=== PATIENT | female | born 1955 | race Caucasian/White ===

== ENCOUNTER 2019-08-23 14:46 | Inpatient (IN) | payer OTHER ==
[2019-08-23 15:25] LABS: Absolute Lymphocytes (CBC) 0.8 K/uL (0.7-4.9); Basophils % 0.1 % (0-1.3); Hematocrit 40.8 % (36.0-45.0); Lymphocytes % 9.8 % (15.3-44.8); RBC Red Blood Cell Count 4.53 M/uL (3.86-4.86)
[2019-08-23 15:27] LABS: Protime INR 1.1
[2019-08-23] MEDS ORDERED: LEVALBUTEROL 1.25 MG/3 ML NEB ONE (15:28)
[2019-08-23] MEDS ORDERED: NA CHLORIDE 0.9% 3,000 ML ONE (15:28)
[2019-08-23 15:48] LABS: ALT/SGPT 22 U/L (12-78); AST/SGOT 16 U/L (15-37); Albumin 4.5 g/dL (3.4-5.0); Alkaline Phosphatase 73 U/L (45-117); BUN Blood Urea Nitrogen 18 mg/dL (7-18); Bicarbonate 26 mmol/L (21-32); Bilirubin Direct 0.1 mg/dL (0-0.2); Bilirubin Total 0.4 mg/dL (0.2-1.0); Glucose Level 131 mg/dL (74-106); Magnesium 2.3 mg/dL (1.8-2.4); NT PRO-BNP 746 pg/mL (<125); Potassium 3.9 mmol/L (3.5-5.1); Protein, Total 8.7 g/dL (6.4-8.2); Sodium Level 141 mmol/L (136-145); Troponin (Emerg Dept Use Only) < 0.02 ng/mL (0.0-0.045)
[2019-08-23 15:49] LABS: Blood Morphology Comment NOT SEEN (NOT SEEN); Platelet Estimate ADEQ; Urine White Blood Cell Casts OK
--- NOTE | 2019-08-23 16:08 | RAD REPORT ---
EXAM DESCRIPTION: RAD - Chest Single View - 08/23/2019 3:28 pm CLINICAL HISTORY: COUGH Chest pain. COMPARISON: No comparisons FINDINGS: Portable technique limits examination quality. Uhiq-eo-ajguocib infiltrate is present in the right lung base compatible with pneumonia. The heart is mildly enlarged in size. No displaced fractures. IMPRESSION: Mild right lower lobe pneumonia.
[2019-08-23 16:41] LABS: Urine Bacteria <20 /HPF (<20); Urine Culture Reflex Order NOT NEEDED; Urine RBC <5 /HPF (NONE SEEN)
[2019-08-23] MEDS: D5 0.45 NS 1,000 ML IV SCH (17:00)
[2019-08-23] MEDS ORDERED: AZITHROMYCIN IV 500 MG in NA CHLORIDE 0.9% 250 ML IVPB ONE (17:00)
--- NOTE | 2019-08-23 17:01 | ER ---
Nurse's Notes [facility] Name: Solange So Age: 63 yrs Sex: Female : 1955 Arrival Date: 08/23/2019 Time: 14:48 Bed 19 Private MD: Дмитрий Minor E Diagnosis: Pneumonia due to other specified bacteria;Hypoxemia Presentation: 08/23 14:55 Presenting complaint: Patient states: Was seen at [facility] with pneumonia and to be sg transferred here for admission but due to bed availability pt left AMA to go home. pt reports shortness of breath, productive cough and fever at home. Transition of care: patient was not received from another setting of care. Onset of symptoms was August 23, 2019. Risk Assessment: Do you want to hurt yourself or someone else? Patient reports no desire to harm self or others. Initial Sepsis Screen: Does the patient meet any 2 criteria? RR > 20 per min. HR > 90 bpm. Yes Does the patient have a suspected source of infection? Yes: Productive cough/pneumonia. Care prior to arrival: None. 14:55 Method Of Arrival: Wheelchair sg 14:55 Acuity: CONSTANCE 3 sg Historical: - Allergies: 16:34 No Known Allergies; ca1 - Home Meds: 16:34 carvedilol 6.25 mg oral tab 1 tab daily [Active]; benzonatate 100 mg oral cap 1 cap 3 ca1 times per day [Active]; levofloxacin 500 mg Oral tab 1 tab once daily [Active]; prednisone 10 mg Oral tab [Active]; naproxen 500 mg Oral tab 1 tab every 12 hours [Active]; - PMHx: 16:34 Hypertension; ca1 - PSHx: 16:34 None; ca1 - Immunization history:: Adult Immunizations up to date, Pneumococcal vaccine is not up to date, Flu vaccine is up to date. - Social history:: Smoking status: Patient/guardian denies using tobacco. - Ebola Screening: : Patient negative for fever greater than or equal to 101.5 degrees Fahrenheit, and additional compatible Ebola Virus Disease symptoms Patient denies exposure to infectious person Patient denies travel to an Ebola-affected area in the 21 days before illness onset No symptoms or risks identified at this time. Screenin:05 Abuse screen: Denies threats or abuse. Denies injuries from another. Nutritional ca1 screening: No deficits noted. Tuberculosis screening: No symptoms or risk factors identified. Fall Risk IV access (20 points). Assessment: 15:05 General: Appears in no apparent distress. comfortable, Behavior is calm, cooperative, ca1 appropriate for age. Pain: Complains of pain in right lateral posterior chest Pain currently is 5 out of 10 on a pain scale. Pain began 2-3 days ago. Is intermittent. Neuro: Level of Consciousness is awake, alert, obeys commands, Oriented to person, place, time, situation. Cardiovascular: Heart tones S1 S2 present Capillary refill < 3 seconds Patient's skin is warm and dry. Rhythm is sinus tachycardia. Respiratory: Reports shortness of breath on exertion cough that is productive, Airway is patent Respiratory effort is even, unlabored, Respiratory pattern is regular, symmetrical, Breath sounds with wheezes bilaterally. the patient has mild shortness of breath. GI: Abdomen is round non-distended, Bowel sounds present X 4 quads. Abd is soft and non tender X 4 quads. : No signs and/or symptoms were reported regarding the genitourinary system. EENT: No signs and/or symptoms were reported regarding the EENT system. Derm: Skin is intact, is healthy with good turgor, Skin is pink, warm \T\ dry. Musculoskeletal: Circulation, motion, and sensation intact. Capillary refill < 3 seconds, Range of motion: intact in all extremities. 16:02 Reassessment: Patient appears in no apparent distress at this time. Patient and/or ca1 family updated on plan of care and expected duration. Pain level reassessed. Patient is alert, oriented x 3, equal unlabored respirations, skin warm/dry/pink. 17:07 Reassessment: Patient appears in no apparent distress at this time. Patient and/or ca1 family updated on plan of care and expected duration. Pain level reassessed. Patient is alert, oriented x 3, equal unlabored respirations, skin warm/dry/pink. 17:49 Reassessment: Hospitalist at bedside. ca1 18:00 Reassessment: Patient appears in no apparent distress at this time. Patient and/or ca1 family updated on plan of care and expected duration. Pain level reassessed. Patient is alert, oriented x 3, equal unlabored respirations, skin warm/dry/pink. 19:00 Reassessment: Patient appears in no apparent distress at this time. Patient and/or ca1 family updated on plan of care and expected duration. Pain level reassessed. Patient is alert, oriented x 3, equal unlabored respirations, skin warm/dry/pink. 19:59 Reassessment: Patient appears in no apparent distress at this time. Patient is alert, ca1 oriented x 3, equal unlabored respirations, skin warm/dry/pink. 20:57 Reassessment: Patient appears in no apparent distress at this time. Patient and/or ca1 family updated on plan of care and expected duration. Pain level reassessed. Patient is alert, oriented x 3, equal unlabored respirations, skin warm/dry/pink. Vital Signs: 14:57 BP 144 / 72; Pulse 114; Resp 22; Temp 98.9; Pulse Ox 94% on R/A; sg 15:00 Pulse Ox 88% on R/A; ca1 15:10 Pulse Ox 95% on R/A; ca1 15:17 Weight 90.72 kg (R); Height 5 ft. 10 in. (177.80 cm) (R); Pain 10/10; ca1 15:57 BP 169 / 71; Pulse 86; Resp 19; Temp 98.1(O); Pulse Ox 100% on 2 lpm NC; mh5 16:50 BP 149 / 85; Pulse 90; Resp 20 S; Pulse Ox 94% on R/A; ca1 18:35 BP 147 / 96; Pulse 84; Resp 18; Pulse Ox 97% on 2 lpm NC; mh5 19:28 BP 158 / 82; Pulse 83; Resp 20 S; Pulse Ox 93% on R/A; ca1 20:57 BP 131 / 71; Pulse 78; Resp 22 S; Pulse Ox 94% on R/A; ca1 15:17 Body Mass Index 28.70 (90.72 kg, 177.80 cm) ca1 ED Course: 14:48 Patient arrived in ED. am2 14:49 Дмитрий Minor MD is Private Physician. am2 14:54 Eva Fuller, ERICKA is Primary Nurse. ca1 14:55 Dionisio Venegas PA is PHCP. cp 14:55 Dionisio Orlando MD is Attending Physician. cp 14:57 Triage completed. sg 14:58 Arm band placed on. EKG completed in triage. Results shown to MD. sg 15:05 Patient has correct armband on for positive identification. Placed in gown. Bed in low ca1 position. Call light in reach. Side rails up X 1. youth nutritional monitor on. Pulse ox on. NIBP on. Warm blanket given. Head of bed elevated. 15:10 No provider procedures requiring assistance completed. First set of blood cultures ca1 drawn by lab staff. 15:14 Inserted saline lock: 20 gauge in right antecubital area, using aseptic technique. ca1 Blood collected. 15:14 Initial lab(s) drawn, by me, sent to lab. First set of blood cultures drawn by me. ca1 15:28 XRAY Chest (1 view) In Process Unspecified. EDMS 16:00 Notified ED physician of a critical lab result(s). Lactate 2.8. sg 16:10 Notified Nurse Practitioner and/or Physician Luster Repairer of a critical lab result(s), sg Lactate 2.8. 16:59 Prince Acharya MD is Hospitalizing Provider. 22:06 Patient admitted, IV remains in place. Administered Medications: 15:18 Drug: Xopenex (3) 1.25 mg Route: Inhalation; ca1 15:20 Drug: NS 0.9% (30 ml/kg) 30 ml/kg Route: IV; Rate: bolus; Site: right antecubital; ca1 17:06 Follow up: Response: No adverse reaction; IV Status: Completed infusion ca1 16:12 Drug: Rocephin - (cefTRIAXone) 2 grams Route: IVPB; Infused Over: 30 mins; Site: right ca1 antecubital; 17:06 Follow up: Response: No adverse reaction; IV Status: Completed infusion ca1 16:50 Drug: Zithromax 500 mg Route: IVPB; Infused Over: 1 hrs; Site: right antecubital; ca1 18:00 Follow up: Response: No adverse reaction; IV Status: Completed infusion ca1 17:05 Drug: Tussionex Pennkinetic ER 5 ml Route: PO; ca1 18:19 Follow up: Response: No adverse reaction; Marked relief of symptoms ca1 Outcome: 17:00 Decision to Hospitalize by Provider. cp 22:06 Admitted to ER Hold. Please see [facility] for further documentation. 22:06 Condition: stable 22:06 Instructed on the need for admit. 08/24 12:02 Admitted to Tele accompanied by tech, family with patient, room 411. hb 12:02 Condition: stable hb 12:02 Instructed on the need for admit, Demonstrated understanding of instructions. 12:03 Patient left the ED. hb Signatures: Dispatcher [employer] Markel García, ERICKA RN Dionisio Ballesteros PA PA cp Baxter, Heather, RN RN hb Chioma Guerra 5 Radha Gibson am2 Sarah Evans Cheryl, RN RN ca1 Corrections: (The following items were deleted from the chart) 12:03 12:02 Admitted to Tele hb hb
--- NOTE | 2019-08-23 17:01 | EDPHYS ---
Physician Documentation [facility] Name: Solange So Age: 63 yrs Sex: Female : 1955 Arrival Date: 08/23/2019 Time: 14:48 Bed 19 Private MD: Дмитрий Minor E ED Physician Dionisio Orlando HPI: 08/23 15:05 This 63 yrs old Female presents to ER via Wheelchair with complaints of cp Breathing Difficulty. 15:05 The patient has shortness of breath at rest. cp 15:05 Duration: The symptoms are continuous, and are steadily getting worse. Associated signs cp and symptoms: Pertinent positives: productive cough, fever. The patient has been recently seen by a physician: in [place], 2 day(s) ago, with similar presenting complaints, and apparently given a diagnosis of pneumonia, was given a prescription for antibiotics, but the patient's symptoms have worsened. Historical: - Allergies: 16:34 No Known Allergies; ca1 - Home Meds: 16:34 carvedilol 6.25 mg oral tab 1 tab daily [Active]; benzonatate 100 mg oral cap 1 cap 3 ca1 times per day [Active]; levofloxacin 500 mg Oral tab 1 tab once daily [Active]; prednisone 10 mg Oral tab [Active]; naproxen 500 mg Oral tab 1 tab every 12 hours [Active]; - PMHx: 16:34 Hypertension; ca1 - PSHx: 16:34 None; ca1 - Immunization history:: Adult Immunizations up to date, Pneumococcal vaccine is not up to date, Flu vaccine is up to date. - Social history:: Smoking status: Patient/guardian denies using tobacco. - Ebola Screening: : Patient negative for fever greater than or equal to 101.5 degrees Fahrenheit, and additional compatible Ebola Virus Disease symptoms Patient denies exposure to infectious person Patient denies travel to an Ebola-affected area in the 21 days before illness onset No symptoms or risks identified at this time. ROS: 15:10 Constitutional: Negative for fever, poor PO intake. cp 15:10 Eyes: Negative for injury, pain, redness, and discharge. cp 15:10 ENT: Negative for drainage from ear(s), ear pain, difficulty swallowing, difficulty handling secretions. 15:10 Cardiovascular: Negative for chest pain, edema. 15:10 Respiratory: Positive for cough, "sounds productive", shortness of breath. 15:10 Abdomen/GI: Negative for abdominal pain, vomiting, diarrhea, constipation. 15:10 : Negative for urinary symptoms. 15:10 Neuro: Negative for altered mental status, headache, weakness. 15:10 All other systems are negative. Exam: 15:15 Constitutional: The patient appears in no acute distress, alert, awake, cp non-diaphoretic, non-toxic, well developed, well nourished, obviously ill. 15:15 Head/Face: Normocephalic, atraumatic. cp 15:15 Eyes: Periorbital structures: appear normal, Conjunctiva: normal, no exudate, no injection, Sclera: no appreciated abnormality, Lids and lashes: appear normal, bilaterally. 15:15 ENT: External ear(s): are unremarkable, Ear canal(s): are normal, clear, TM's: dullness, bilaterally, Nose: is normal, Mouth: Lips: moist, Oral mucosa: pink and intact, moist, Posterior pharynx: is normal, airway is patent, no erythema, no exudate. 15:15 Neck: ROM/movement: is normal, is supple, without pain, no range of motions limitations, no meningismus, no nuchal rigidity. 15:15 Chest/axilla: Inspection: normal. 15:15 Cardiovascular: Rate: tachycardic, Rhythm: regular, Edema: is not appreciated, JVD: is not appreciated. 15:15 Respiratory: the patient does not display signs of respiratory distress, Respirations: labored breathing, that is mild, intercostal retractions, are absent, shallow respirations, are not present, tachypnea, is not appreciated, Breath sounds: bronchial sounds, that are moderate, are heard diffusely, stridor, is not appreciated, + upper airway congestion. wheezing: is not appreciated. 15:15 Abdomen/GI: Exam negative for discomfort, distension, guarding, Inspection: abdomen appears normal. 15:15 Neuro: Orientation: to person, place \\T\\ time. Mentation: is normal, Motor: moves all fours, strength is normal. 16:20 ECG was reviewed by the Attending Physician. cp Vital Signs: 14:57 BP 144 / 72; Pulse 114; Resp 22; Temp 98.9; Pulse Ox 94% on R/A; sg 15:00 Pulse Ox 88% on R/A; ca1 15:10 Pulse Ox 95% on R/A; ca1 15:17 Weight 90.72 kg (R); Height 5 ft. 10 in. (177.80 cm) (R); Pain 10/10; ca1 15:57 BP 169 / 71; Pulse 86; Resp 19; Temp 98.1(O); Pulse Ox 100% on 2 lpm NC; mh5 16:50 BP 149 / 85; Pulse 90; Resp 20 S; Pulse Ox 94% on R/A; ca1 18:35 BP 147 / 96; Pulse 84; Resp 18; Pulse Ox 97% on 2 lpm NC; mh5 19:28 BP 158 / 82; Pulse 83; Resp 20 S; Pulse Ox 93% on R/A; ca1 20:57 BP 131 / 71; Pulse 78; Resp 22 S; Pulse Ox 94% on R/A; ca1 15:17 Body Mass Index 28.70 (90.72 kg, 177.80 cm) ca1 MDM: 15:05 [facility] 16:55 Data reviewed: vital signs, nurses notes, lab test result(s), EKG, radiologic studies, cp plain films, and as a result, I will admit patient. 16:55 Test interpretation: by ED physician or midlevel provider: ECG. Response to treatment: the patient's symptoms have mildly improved after treatment. Physician consultation: Prince Patrizia VELÁSQUEZ was called at 16:50, was contacted at 16:50, regarding admission, to the telemetry unit. patient's condition. 08/23 15:04 Order name: Basic Metabolic Panel cp 08/23 15:04 Order name: CBC with Diff cp 08/23 15:04 Order name: LFT's cp 08/23 15:04 Order name: Magnesium cp 08/23 15:04 Order name: NT PRO-BNP cp 08/23 15:04 Order name: PT-INR; Complete Time: 15:34 cp 08/23 15:04 Order name: Troponin (emerg Dept Use Only); Complete Time: 16:07 cp 08/23 15:04 Order name: Influenza Screen (a \\T\\ B); Complete Time: 16:07 cp 08/23 15:04 Order name: Procalcitonin; Complete Time: 16:40 cp 08/23 15:04 Order name: Lactate; Complete Time: 16:07 cp 08/23 16:07 Interpretation: Abnormal: LAC 2.8. cp 08/23 15:04 Order name: Sputum Culture cp 08/23 15:04 Order name: Blood Culture Adult (2) cp 08/23 15:04 Order name: Urine Microscopic Only; Complete Time: 16:59 cp 08/23 15:05 Order name: Basic Metabolic Panel; Complete Time: 16:07 EDMS 08/23 16:08 Interpretation: Normal except: CL 108; GLUC 131; GFR 68. cp 08/23 15:05 Order name: CBC with Automated Diff; Complete Time: 16:07 EDMS 08/23 15:34 Interpretation: Normal except: JOHN% 86.3; LYM% 9.8. cp 08/23 15:05 Order name: Liver (Hepatic) Function; Complete Time: 16:07 EDPA 08/23 15:05 Order name: Magnesium; Complete Time: 16:07 EDPA 08/23 15:05 Order name: NT PRO-BNP; Complete Time: 16:07 EDPA 08/23 15:35 Order name: Glucose, Ancillary Testing; Complete Time: 16:07 EDPA 08/23 15:49 Order name: CBC Smear Scan; Complete Time: 16:07 EDPA 08/23 16:54 Order name: CBC with Automated Diff EDPA 08/23 16:54 Order name: Lactate EDPA 08/23 16:54 Order name: Magnesium EDPA 08/23 16:54 Order name: Phosphorus EDPA 08/23 16:54 Order name: Basic Metabolic Panel EDPA 08/23 16:54 Order name: Basic Metabolic Panel EDPA 08/23 16:54 Order name: Lipid Profile EDPA 08/23 16:54 Order name: Lipid Profile EDPA 08/23 16:58 Order name: Urine Dipstick--Ancillary (enter results) eb 08/23 17:06 Order name: Urine Dipstick-Ancillary EDPA 08/23 15:04 Order name: XRAY Chest (1 view); Complete Time: 16:11 08/23 15:04 Order name: EKG; Complete Time: 15:05 cp 08/23 15:04 Order name: Cardiac monitoring; Complete Time: 16:12 08/23 15:04 Order name: EKG - Nurse/Tech; Complete Time: 16:12 08/23 15:04 Order name: IV Saline Lock; Complete Time: 15:33 cp 08/23 15:04 Order name: Labs collected and sent; Complete Time: 15:34 cp 08/23 15:04 Order name: O2 Per Protocol; Complete Time: 15:34 cp 08/23 15:04 Order name: O2 Sat Monitoring; Complete Time: 15:34 cp 08/23 15:04 Order name: Urine Dipstick-Ancillary (obtain specimen); Complete Time: 15:33 cp 08/23 16:54 Order name: Regular EDMS 08/23 18:40 Order name: CBC Smear Scan EDMS EC:20 Rate is 88 beats/min. Rhythm is regular. MN interval is normal. QRS interval is normal. cp QT interval is normal. T waves are Inverted in lead III. Interpreted by me. Reviewed by me. Administered Medications: 15:18 Drug: Xopenex (3) 1.25 mg Route: Inhalation; ca1 15:20 Drug: NS 0.9% (30 ml/kg) 30 ml/kg Route: IV; Rate: bolus; Site: right antecubital; ca1 17:06 Follow up: Response: No adverse reaction; IV Status: Completed infusion ca1 16:12 Drug: Rocephin - (cefTRIAXone) 2 grams Route: IVPB; Infused Over: 30 mins; Site: right ca1 antecubital; 17:06 Follow up: Response: No adverse reaction; IV Status: Completed infusion ca1 16:50 Drug: Zithromax 500 mg Route: IVPB; Infused Over: 1 hrs; Site: right antecubital; ca1 18:00 Follow up: Response: No adverse reaction; IV Status: Completed infusion ca1 17:05 Drug: Tussionex Pennkinetic ER 5 ml Route: PO; ca1 18:19 Follow up: Response: No adverse reaction; Marked relief of symptoms ca1 Disposition: 08/24 12:38 Co-signature as Attending Physician, Dionisio Orlando MD I agree with the assessment and azam plan of care. PA/STATE WILDLIFE OFFICER's history reviewed, patient interviewed, and examined. Disposition: 08/23/19 17:00 Hospitalization ordered by Prince Patrizia for Inpatient Admission. Preliminary diagnosis are Pneumonia due to other specified bacteria, Hypoxemia. - Bed requested for Telemetry/MedSurg (Inpatient). - Status is Inpatient Admission. hb - Condition is Stable. - Problem is new. - Symptoms have improved. UTI on Admission? No Signatures: Dispatcher [employer] EDMS Dionisio Orlando MD MD cha Page, Corey, PA PA cp Monserrat Rodriguez, ERICKA BARNETT cg Sherly Blackwell RN RN Pulliam, Maribel eb Eva Fuller RN RN ca1 Corrections: (The following items were deleted from the chart) 08/23 17:08/22 15:10 Constitutional: Negative for fever, poor PO intake, cp cp 08/23 17:08/22 15:10 Eyes: Negative for injury, pain, redness, and discharge, cp cp 08/23 16:08/22 15:10 ENT: Negative for drainage from ear(s), ear pain, difficulty swallowing, cp difficulty handling secretions, cp 08/23 16:51 08/22 15:10 Cardiovascular: Negative for edema, palpitations, cp cp 08/23 16:08/22 15:10 Respiratory: Positive for cough, "sounds productive", shortness of breath, cp cp 08/23 16:51 08/22 15:10 Abdomen/GI: Negative for abdominal pain, vomiting, diarrhea, constipation, cp cp 08/23 17:08/22 15:10 Skin: Negative for rash, cp cp 08/23 16:08/22 15:10 Neuro: Negative for altered mental status, headache, cp cp 08/23 16:08/22 15:10 All other systems are negative, cp cp 08/23 22: 17:00 Hospitalization Ordered by Prince Patrizia VELÁSQUEZ for Inpatient Admission. Preliminary cg diagnosis is Pneumonia due to other specified bacteria; Hypoxemia. Bed requested for Telemetry/MedSurg (Inpatient). Status is Inpatient Admission. Condition is Stable. Problem is new. Symptoms have improved. UTI on Admission? No. cp 08/24 11:25 08/23 22:01 08/23/2019 17:00 Hospitalization Ordered by Prince Patrizia VELÁSQUEZ for Inpatient eb Admission. Preliminary diagnosis is Pneumonia due to other specified bacteria; Hypoxemia. Bed requested for [facility] ER HOLD. Status is Inpatient Admission. Condition is Stable. Problem is new. Symptoms have improved. UTI on Admission? No. cg 08/24 12:03 11:08/23/2019 17:00 Hospitalization Ordered by Prince Patrizia VELÁSQUEZ for Inpatient hb Admission. Preliminary diagnosis is Pneumonia due to other specified bacteria; Hypoxemia. Bed requested for Telemetry/MedSurg (Inpatient). Status is Inpatient Admission. Condition is Stable. Problem is new. Symptoms have improved. UTI on Admission? No. eb
[2019-08-23 17:06] LABS: Urine Blood NEGATIVE (NEG); Urine Glucose NEGATIVE (NEG); Urine Protein NEGATIVE (NEG); Urine Specific Gravity 1.025 (1.005-1.030)
[2019-08-23] MEDS ORDERED: HYDROCODONE/CHLORPHEN 5 ML/OSYR ONE (17:06)
[2019-08-23] MEDS: ENOXAPARIN 40 MG/0.4 ML SQ SCH (18:00)
--- NOTE | 2019-08-23 18:05 | P.HP ---
Certification for Inpatient Patient admitted to: Inpatient With expected LOS: >2 Midnights Patient will require the following post-hospital care: None Practitioner: I am a practitioner with admitting privileges, knowledge of patient current condition, hospital course, and medical plan of care. Services: Services provided to patient in accordance with Admission requirements found in Title 42 Section 412.3 of the Code of Federal Regulations Patient History Date of Service: 08/23/19 Reason for admission: Shortness of breath History of Present Illness: Patient is a 63-year-old female with obstructive sleep apnea on CPAP at home. She presents to the ER after she failed an outpatient therapy for pneumonia. She recently was diagnosed with community-acquired pneumonia and was prescribed levofloxacin and prednisone. However, her symptoms progressed as evidenced by ongoing fever, dry cough and chest congestion. Patient denies any sick contacts. She also denies any traveling. She works at [employer]. Of note, she has been using her CPAP machine for the past year and has yet to clean it. She arrived in the ER hemodynamically stable but hypoxic with an O2 saturation of 88% on room air. Her chest x-ray revealed evidence of left lower lobe pneumonia. Basic labs significant for lactic acidosis of 2.8. Physical Examination - Physical Exam General: Cooperative, Other (Severely lethargic) HEENT: Atraumatic, Normocephalic, EOMI Neck: Supple Respiratory: Diminished (No wheezing or crackles. Rhonchorous breath sounds.) Cardiovascular: Normal pulses, Regular rate/rhythm, Normal S1 S2 Gastrointestinal: Normal bowel sounds, Soft and benign, Non-distended Musculoskeletal: No swelling, No contractures, No erythema Integumentary: Warmth Neurological: Normal speech, Normal affect - Studies Laboratory Data (last 24 hrs) 08/23/19 15:08: PT 12.9 H, INR 1.10 08/23/19 15:08: WBC 8.4, Hgb 13.8, Hct 40.8, Plt Count 200 08/23/19 15:08: Sodium 141, Potassium 3.9, BUN 18, Creatinine 0.84, Glucose 131 H, Magnesium 2.3, Total Bilirubin 0.4, AST 16, ALT 22, Alkaline Phosphatase 73 Microbiology Data (last 24 hrs): 08/23/19 15:21 Nasopharnyx Influenza Type A Antigen Screen - Final 08/23/19 15:21 Nasopharnyx Influenza Type B Antigen Screen - Final Assessment and Plan - Problems (Diagnosis) (1) Community acquired bacterial pneumonia Current Visit: Yes Status: Acute Discharge Plan: Home - Advance Directives Does patient have a Living Will: No Does patient have a Durable POA for Healthcare: No Physician Review Additional Text: Impression: A 63-year-old female with obstructive sleep apnea brought into the hospital after failing outpatient therapy for community-acquired pneumonia. 1. Community-acquired pneumonia. 2. Obstructive sleep on CPAP at home Plan: 1. Admit inpatient 2. Continue ceftriaxone and azithromycin 3. Order CPAP at bedtime 4. Follow-up blood and sputum cultures
[2019-08-23 18:08] LABS: Absolute Lymphocytes (CBC) 0.4 K/uL (0.7-4.9); Basophils % 0.1 % (0-1.3); Hematocrit 37.3 % (36.0-45.0); Lymphocytes % 8.3 % (15.3-44.8); MPV 9.8 fL (7.6-11.3); RBC Red Blood Cell Count 4.06 M/uL (3.86-4.86)
[2019-08-23 18:17] LABS: Magnesium 1.9 mg/dL (1.8-2.4); Phosphorus 2.7 mg/dL (2.5-4.9)
[2019-08-23 18:39] LABS: Blood Morphology Comment NOT SEEN (NOT SEEN); Platelet Estimate DECR; Urine White Blood Cell Casts OK
[2019-08-23] MEDS ORDERED: CEFTRIAXONE/SWI 1gm 1 GM/10 ML SYR IVP SCH (21:00)
[2019-08-23 22:11] VITALS: BMI 28.5
[2019-08-23] MEDS: ALBUTEROL 2.5 MG/3 ML NEB SOL NEB PRN (22:35)
[2019-08-23] MEDS: IPRATROPIUM BROM 0.5MG/2.5ML NEB PRN (22:35)
[2019-08-23] MEDS ORDERED: ALBUTEROL 2.5 MG/3 ML NEB SOL ONE (22:36)
[2019-08-23] MEDS ORDERED: IPRATROPIUM BROM 0.5MG/2.5ML ONE (22:36)
[2019-08-24] MEDS ORDERED: ENOXAPARIN 40 MG/0.4 ML SQ ONE ×2 (00:46→08:42)
[2019-08-24] MEDS ORDERED: D5 0.45 NS 1,000 ML IV ONE ×2 (00:47→10:14)
[2019-08-24] MEDS: D5 0.45 NS 1,000 ML IV SCH ×3 (01:17→21:42)
[2019-08-24 06:01] LABS: BUN Blood Urea Nitrogen 17 mg/dL (7-18); Bicarbonate 28 mmol/L (21-32); Glucose Level 103 mg/dL (74-106); HDL Cholesterol 58 mg/dL (40-60); LDL Cholesterol, Calculated 71 (<130); Potassium 3.5 mmol/L (3.5-5.1); Sodium Level 144 mmol/L (136-145)
[2019-08-24] MEDS ORDERED: AZITHROMYCIN IV 500 MG in NA CHLORIDE 0.9% 250 ML IVPB SCH ×2 (09:00→17:00)
[2019-08-24] MEDS: ENOXAPARIN 40 MG/0.4 ML SQ SCH (09:00)
[2019-08-24] MEDS ORDERED: IPRATROPIUM BROM 0.5MG/2.5ML ONE ×2 (09:41→13:14)
[2019-08-24] MEDS ORDERED: ALBUTEROL 2.5 MG/3 ML NEB SOL ONE ×2 (09:41→13:14)
[2019-08-24] MEDS: AZITHROMYCIN IV 500 MG in NA CHLORIDE 0.9% 250 ML IVPB SCH (10:00)
[2019-08-24] MEDS: CEFTRIAXONE/SWI 1gm 1 GM/10 ML SYR IVP SCH ×2 (10:00→21:42)
[2019-08-24] MEDS ORDERED: CEFTRIAXONE/SWI 1gm 1 GM/10 ML SYR ONE (10:06)
--- NOTE | 2019-08-24 12:21 | EKG ---
Test Date: 2019-08-23 Test Time: 16:04:02 Industrial Engineering Analyst: ASHLIE MEASUREMENT RESULTS: Intervals: Rate: 88 AK: 160 QRSD: 88 QT: 366 QTc: 442 [place]: P: 75 AK: 160 QRS: 40 T: 16 INTERPRETIVE STATEMENTS: Normal sinus rhythm ST abnormality, non specific Abnormal ECG No previous ECG available for comparison Electronically Signed On 08-24-19 12:21:09 RECEIVING CLERK by Todd Nicole
[2019-08-24] MEDS ORDERED: ACETAMINOPHEN 500 MG TAB ONE (12:29)
[2019-08-24] MEDS: ACETAMINOPHEN 500 MG TAB PO PRN (12:30)
[2019-08-24] MEDS: IPRATROPIUM BROM 0.5MG/2.5ML NEB PRN (13:37)
[2019-08-24] MEDS: ALBUTEROL 2.5 MG/3 ML NEB SOL NEB PRN (13:37)
--- NOTE | 2019-08-24 14:33 | P.PN ---
Subjective Date of Service: 08/24/19 Chief Complaint: Shortness of breath Patient is having hemoptysis this morning. She still lethargic. Otherwise, does not appear dyspneic. Using CPAP at bedtime. Physical Examination - Vital Signs Temperature: 97.3 F Blood Pressure: 157/76 Pulse: 76 Respirations: 18 Pulse Ox (%): 93 - Physical Exam General: Cooperative, Other (Lethargic) HEENT: Atraumatic, Normocephalic, EOMI Neck: Supple Respiratory: Diminished (Excessive coughing with inspiration), Rhonchi/gurgles Cardiovascular: No edema, Normal pulses, Regular rate/rhythm, Normal S1 S2 Gastrointestinal: Normal bowel sounds, Soft and benign, Non-distended Musculoskeletal: No swelling, No contractures, No erythema Integumentary: Warmth Neurological: Normal speech, Normal affect - Studies Laboratory Data (last 24 hrs) 08/23/19 15:08: PT 12.9 H, INR 1.10 08/23/19 15:08: WBC 8.4, Hgb 13.8, Hct 40.8, Plt Count 200 08/23/19 15:08: Sodium 141, Potassium 3.9, BUN 18, Creatinine 0.84, Glucose 131 H, Magnesium 2.3, Total Bilirubin 0.4, AST 16, ALT 22, Alkaline Phosphatase 73 Microbiology Data (last 24 hrs): 08/23/19 15:21 Nasopharnyx Influenza Type A Antigen Screen - Final 08/23/19 15:21 Nasopharnyx Influenza Type B Antigen Screen - Final Assessment & Plan - Problems (Diagnosis) (1) Community acquired bacterial pneumonia Current Visit: Yes Status: Acute Physician Review Additional Text: Impression: A 63-year-old female with obstructive sleep apnea brought into the hospital after failing outpatient therapy for community-acquired pneumonia. Currently off oxygen. Hospital course complicated by ongoing hemoptysis. Respiratory culture pending, so far negative for influenza. 1. Community-acquired pneumonia. 2. Obstructive sleep on CPAP at home 3. Hemoptysis Plan: 1. CT chest to evaluate for hemoptysis 2. Date 2 of ceftriaxone and azithromycin. Treat for 7 days 3. Continue CPAP at bedtime 4. Follow-up blood and sputum cultures 5. PT/OT given deconditioning.
--- NOTE | 2019-08-24 15:17 | RAD REPORT ---
EXAM DESCRIPTION: CT - Chest Angio - 08/24/2019 3:02 pm CLINICAL HISTORY: hemoptysis COMPARISON: None. TECHNIQUE: Dynamically enhanced axial 3 mm thick images of the chest were obtained during administra tion of <100> mL Isovue 370 IV contrast. Coronal and oblique reconstruction images were generated and reviewed. Exam utilizes a protocol for optimal evaluation of pulmonary arterial tree. Maximum intensity projections 3D imaging was utilized All CT scans are performed using dose optimization technique as appropriate and may include automated exposure control or mA/KV adjustment according to patient size. FINDINGS: A pulmonary embolus is not seen. A thoracic aortic aneurysm is not noted. A pleural effusion is not seen. A pericardial effusion is not seen. Right lower lobe opacity has the appearance of atelectasis. 29 millimeter low-density left thyroid nodule IMPRESSION: Negative for a pulmonary embolism. Left lower lobe atelectasis. This should be followed until it has cleared to help exclude a post obst ructive process 29 millimeter low-density left thyroid nodule. Nonemergent thyroid ultrasound recommended
[2019-08-24] MEDS ORDERED: CEFTRIAXONE/SWI 1gm 1 GM/10 ML SYR IVP SCH (16:00)
[2019-08-25] MEDS: D5 0.45 NS 1,000 ML IV SCH ×2 (07:52→18:35)
[2019-08-25] MEDS: carvediloL 3.125 MG TAB PO SCH (07:53)
[2019-08-25] MEDS: ASPIRIN EC 81 MG TAB PO SCH (07:53)
[2019-08-25] MEDS: CEFTRIAXONE/SWI 1gm 1 GM/10 ML SYR IVP SCH ×2 (07:53→20:47)
[2019-08-25] MEDS: ENOXAPARIN 40 MG/0.4 ML SQ SCH (07:54)
[2019-08-25] MEDS: AZITHROMYCIN IV 500 MG in NA CHLORIDE 0.9% 250 ML IVPB SCH (09:00)
[2019-08-25] MEDS: IPRATROPIUM BROM 0.5MG/2.5ML NEB PRN ×2 (13:35→20:15)
[2019-08-25] MEDS: ALBUTEROL 2.5 MG/3 ML NEB SOL NEB PRN ×2 (13:35→20:15)
[2019-08-25] MEDS: ACETYLCYST 20% 4 ML VIAL IH SCH ×2 (13:35→20:15)
--- NOTE | 2019-08-25 13:47 | P.PN ---
Subjective Date of Service: 08/25/19 Chief Complaint: Shortness of breath Subjective: No new changes, Tolerating diet, C/O voiced (weakness , right pleuritic chest pain) Review of Systems 10-point ROS is otherwise unremarkable Physical Examination - Vital Signs Temperature: 97.9 F Blood Pressure: 148/71 Pulse: 65 Respirations: 18 Pulse Ox (%): 95 - Physical Exam General: Alert, Oriented x3 HEENT: Atraumatic, Normocephalic, PERRLA, Mucous membr. moist/pink Neck: Supple, 2+ carotid pulse no bruit Respiratory: Clear to auscultation bilaterally, Expiratory wheezes, Rhonchi/ gurgles (minimal ) Cardiovascular: No edema, Regular rate/rhythm, Normal S1 S2 Gastrointestinal: Normal bowel sounds, Soft and benign, Non-distended, No ascites Musculoskeletal: No clubbing, No swelling Integumentary: No rashes, No breakdown Neurological: Normal speech, Normal strength at 5/5 x4 extr - Studies Laboratory Last Values WBC 5.4 K/uL (4.3-10.9) D 08/23/19 17:42 RBC 4.06 M/uL (3.86-4.86) 08/23/19 17:42 Hgb 12.3 g/dL (12.0-15.0) 08/23/19 17:42 Hct 37.3 % (36.0-45.0) 08/23/19 17:42 MCV 91.9 fL (80-100) 08/23/19 17:42 MCH 30.3 pg (27.0-35.0) 08/23/19 17:42 MCHC 32.9 g/dL (32.0-36.0) 08/23/19 17:42 RDW 13.3 % (12.1-15.2) 08/23/19 17:42 Plt Count 144 K/uL (152-406) L D 08/23/19 17:42 MPV 9.8 fL (7.6-11.3) 08/23/19 17:42 Neutrophils % 86.0 % (41.7-73.7) H 08/23/19 17:42 Lymphocytes % 8.3 % (15.3-44.8) L 08/23/19 17:42 Monocytes % 5.6 % (3.3-12.3) 08/23/19 17:42 Eosinophils % 0.0 % (0-4.4) 08/23/19 17:42 Basophils % 0.1 % (0-1.3) 08/23/19 17:42 Absolute Neutrophils 4.6 K/uL (1.8-8.0) 08/23/19 17:42 Absolute Lymphocytes 0.4 K/uL (0.7-4.9) L 08/23/19 17:42 Absolute Monocytes 0.3 K/uL (0.1-1.3) 08/23/19 17:42 Absolute Eosinophils 0.0 K/uL (0-0.5) 08/23/19 17:42 Absolute Basophils 0.0 K/uL (0-0.5) 08/23/19 17:42 Morphology Comment Not seen (NOT SEEN) 08/23/19 17:42 PT 12.9 SECONDS (9.5-12.5) H 08/23/19 15:08 INR 1.10 08/23/19 15:08 Sodium 144 mmol/L (136-145) 08/24/19 05:26 Potassium 3.5 mmol/L (3.5-5.1) 08/24/19 05:26 Chloride 111 mmol/L (98-107) H 08/24/19 05:26 Carbon Dioxide 28 mmol/L (21-32) 08/24/19 05:26 BUN 17 mg/dL (7-18) 08/24/19 05:26 Creatinine 0.64 mg/dL (0.55-1.3) 08/24/19 05:26 Estimated GFR > 90 mL/min (=/>90) 08/24/19 05:26 Glucose 103 mg/dL (74-106) 08/24/19 05:26 POC Glucose 124 mg/dl (65-120) H 08/23/19 15:12 Lactic Acid 1.8 mmol/L (0.4-2.0) 08/23/19 17:42 Calcium 8.4 mg/dL (8.5-10.1) L 08/24/19 05:26 Phosphorus 2.7 mg/dL (2.5-4.9) 08/23/19 17:42 Magnesium 1.9 mg/dL (1.8-2.4) 08/23/19 17:42 Total Bilirubin 0.4 mg/dL (0.2-1.0) 08/23/19 15:08 Direct Bilirubin 0.1 mg/dL (0-0.2) 08/23/19 15:08 AST 16 U/L (15-37) 08/23/19 15:08 ALT 22 U/L (12-78) 08/23/19 15:08 Alkaline Phosphatase 73 U/L (45-117) 08/23/19 15:08 Rapid Troponin I < 0.02 ng/mL (0.0-0.045) 08/23/19 15:08 NT-Pro-B Natriuret Pep 746 pg/mL (<125) H 08/23/19 15:08 Serum Total Protein 8.7 g/dL (6.4-8.2) H 08/23/19 15:08 Albumin 4.5 g/dL (3.4-5.0) 08/23/19 15:08 Globulin 4.2 g/dL (2.3-3.5) H 08/23/19 15:08 Albumin/Globulin Ratio 1.1 (1.1-1.8) 08/23/19 15:08 Triglycerides 75 mg/dL (<150) 08/24/19 05:26 Cholesterol 144 mg/dL (<200) 08/24/19 05:26 LDL Cholesterol, Calc 71 (<130) 08/24/19 05:26 HDL Cholesterol 58 mg/dL (40-60) 08/24/19 05:26 Cholesterol/HDL Ratio 2.48 08/24/19 05:26 Procalcitonin < 0.05 ng/mL (<0.50) 08/23/19 15:08 TSH 1.750 uIU/mL (0.360-3.740) 08/24/19 05:26 Urine pH 7.0 (5.0-7.0) 08/23/19 16:58 Ur Specific [place] 1.025 (1.005-1.030) 08/23/19 16:58 Urine Ketones Negative (NEG) 08/23/19 16:58 Urine Blood Negative (NEG) 08/23/19 16:58 Urine Nitrite Negative (NEG) 08/23/19 16:58 Ur Leukocyte Esterase Negative (NEG) 08/23/19 16:58 Urine RBC <5 /HPF (NONE SEEN) 08/23/19 15:21 Urine WBC <5 /HPF (<5) 08/23/19 15:21 Ur Squamous Epith Cells <5 /HPF (NONE SEEN) 08/23/19 15:21 Urine Bacteria <20 /HPF (<20) 08/23/19 15:21 Urine Culture Reflexed Not needed 08/23/19 15:21 Urine Glucose Negative (NEG) 08/23/19 16:58 Urine Total Protein Negative (NEG) 08/23/19 16:58 Assessment & Plan - Problems (Diagnosis) (1) Community acquired bacterial pneumonia Current Visit: Yes Status: Acute Plan to discharge in: 24 Hours Physician Review: Patient Assessed, Agree with Above Assessment and Plan Physician Review Additional Text: 1. Community-acquired pneumonia- right lower lobe -improving - mild wheezes may be due to pna -will add mucomyst to duonebs - c/w abx 2. Obstructive sleep on CPAP at home 3. Hemoptysis - CT shows right lower lobe opacity consistent with atelectasis vs pna , but advised follow up after clearing to r/o underlying mass Plan: -c/w PT /ot -C/w abx
[2019-08-25 21:52] VITALS: O2SAT 96
[2019-08-26] MEDS: D5 0.45 NS 1,000 ML IV SCH (05:00)
[2019-08-26 06:16] LABS: Basophils % 0.4 % (0-1.3); Hematocrit 33.9 % (36.0-45.0); Lymphocytes % 30.9 % (15.3-44.8); MPV 9.5 fL (7.6-11.3); RBC Red Blood Cell Count 3.75 M/uL (3.86-4.86)
[2019-08-26 06:23] LABS: ALT/SGPT 20 U/L (12-78); AST/SGOT 14 U/L (15-37); Albumin 3.1 g/dL (3.4-5.0); Alkaline Phosphatase 55 U/L (45-117); BUN Blood Urea Nitrogen 13 mg/dL (7-18); Bicarbonate 28 mmol/L (21-32); Bilirubin Total 0.3 mg/dL (0.2-1.0); Glucose Level 107 mg/dL (74-106); Potassium 3.5 mmol/L (3.5-5.1); Protein, Total 6.3 g/dL (6.4-8.2); Sodium Level 143 mmol/L (136-145)
[2019-08-26] MEDS: ASPIRIN EC 81 MG TAB PO SCH (08:04)
[2019-08-26] MEDS: carvediloL 3.125 MG TAB PO SCH (08:04)
[2019-08-26] MEDS: ENOXAPARIN 40 MG/0.4 ML SQ SCH (08:05)
[2019-08-26] MEDS: CEFTRIAXONE/SWI 1gm 1 GM/10 ML SYR IVP SCH (08:05)
[2019-08-26] MEDS: AZITHROMYCIN IV 500 MG in NA CHLORIDE 0.9% 250 ML IVPB SCH (08:05)
[2019-08-26] MEDS: ALBUTEROL 2.5 MG/3 ML NEB SOL NEB PRN (08:20)
[2019-08-26] MEDS: ACETYLCYST 20% 4 ML VIAL IH SCH (08:20)
[2019-08-26] MEDS: IPRATROPIUM BROM 0.5MG/2.5ML NEB PRN (08:20)
[2019-08-26] MEDS: ACETAMINOPHEN 500 MG TAB PO PRN (09:53)
--- NOTE | 2019-08-26 13:25 | P.DS ---
Admission Date: 08/23/19 Discharge Date: 08/26/19 Disposition: ROUTINE DISCHARGE Discharge Condition: GOOD Reason for Admission: Shortness of breath - Problems (1) Community acquired bacterial pneumonia Current Visit: Yes Status: Acute Brief History of Present Illness: History of Present Illness: Patient is a 63-year-old female with obstructive sleep apnea on CPAP at home. She presents to the ER after she failed an outpatient therapy for pneumonia. She recently was diagnosed with community-acquired pneumonia and was prescribed levofloxacin and prednisone. However, her symptoms progressed as evidenced by ongoing fever, dry cough and chest congestion. Patient denies any sick contacts. She also denies any traveling. She works at [employer]. Of note, she has been using her CPAP machine for the past year and has yet to clean it. She arrived in the ER hemodynamically stable but hypoxic with an O2 saturation of 88% on room air. Her chest x-ray revealed evidence of left lower lobe pneumonia. Basic labs significant for lactic acidosis of 2.8. Hospital Course: Patient on admission was managed for presumed upper respiratory tract infection. She had a chest x-ray as well as a CT of the lumbar done which shows no evidence of pulmonary emboli seen but right lateral foot opacity suspicious for atelectasis versus pneumonia. Sputum culture all was negative. Blood culture as well as urine culture will also negative. She was started initially on empirical antibiotics with azithromycin but switched to oral Levaquin at discharge. report of CT recommend follow-up imaging in 3 weeks to ensure clearing of right lobe opacity and rule out any postobstructive process The patient has significantly improved. She will be discharged home today to continue follow up with Dr. jackson and will need repeat chest imaging in 3-4 weeks Vital Signs/Physical Exam: Temp Pulse Resp BP Pulse Ox 97 F 63 18 139/72 96 08/26/19 08:00 08/26/19 08:04 08/26/19 08:00 08/26/19 08:04 08/26/19 04:00 General: Alert, Oriented x3, Obese HEENT: Atraumatic, Normocephalic, PERRLA Neck: Supple, 2+ carotid pulse no bruit, JVD not distended Respiratory: Clear to auscultation bilaterally, Crackles/rales (minimal -) Cardiovascular: No edema, Normal pulses, Regular rate/rhythm, Normal S1 S2 Gastrointestinal: Normal bowel sounds, Soft and benign, Non-distended Neurological: Normal speech, Normal strength at 5/5 x4 extr, Sensation intact, Cranial nerves 3-12 intact Laboratory Data at Discharge: WBC 3.1 K/uL (4.3-10.9) L D 08/26/19 05:21 Hgb 11.5 g/dL (12.0-15.0) L 08/26/19 05:21 Hct 33.9 % (36.0-45.0) L 08/26/19 05:21 Plt Count 138 K/uL (152-406) L 08/26/19 05:21 PT 12.9 SECONDS (9.5-12.5) H 08/23/19 15:08 INR 1.10 08/23/19 15:08 Sodium 143 mmol/L (136-145) 08/26/19 05:21 Potassium 3.5 mmol/L (3.5-5.1) 08/26/19 05:21 BUN 13 mg/dL (7-18) 08/26/19 05:21 Creatinine 0.58 mg/dL (0.55-1.3) 08/26/19 05:21 Glucose 107 mg/dL (74-106) H 08/26/19 05:21 Phosphorus 2.7 mg/dL (2.5-4.9) 08/23/19 17:42 Magnesium 1.9 mg/dL (1.8-2.4) 08/23/19 17:42 Total Bilirubin 0.3 mg/dL (0.2-1.0) 08/26/19 05:21 AST 14 U/L (15-37) L 08/26/19 05:21 ALT 20 U/L (12-78) 08/26/19 05:21 Alkaline Phosphatase 55 U/L (45-117) 08/26/19 05:21 Triglycerides 75 mg/dL (<150) 08/24/19 05:26 Cholesterol 144 mg/dL (<200) 08/24/19 05:26 HDL Cholesterol 58 mg/dL (40-60) 08/24/19 05:26 Cholesterol/HDL Ratio 2.48 08/24/19 05:26 Home Medications: Aspirin [Aspirin EC 81 MG] 81 mg PO DAILY 08/23/19 Carvedilol [Coreg] 6.25 mg PO DAILY 08/23/19 Albuterol Sulfate [Proventil Hfa] 6.7 gm IH Q4HR PRN #1 [email or web address] 08/26/19 Benzonatate [Tessalon Perle] 200 mg PO TID #20 cap 08/26/19 Levofloxacin [Levaquin] 500 mg PO DAILY #10 tablet 08/26/19 New Medications: Albuterol Sulfate [Proventil Hfa] 6.7 gm IH Q4HR PRN #1 [email or web address] PRN Reason: Wheezing Benzonatate [Tessalon Perle] 200 mg PO TID #20 cap Levofloxacin [Levaquin] 500 mg PO DAILY #10 tablet Patient Discharge Instructions: Follow-up with your primary doctor Hugh in 3-5 days. Diet: Low sodium Activity: Ad eileen Time spent managing pt's care (in minutes): 35
[2019-08-26 14:39] VITALS: BP 154/78; TEMP 98.5
== END 2019-08-26 14:15 | disposition home or self-care (01) | DRG 194 ==
LOC: ER 14:46 → ERHOLD 16:47 → 4TH 08-24 11:48
PROVIDERS: ADMIT Internal Medicine; ATTEND Internal Medicine
DX: J18.9 Pneumonia, unspecified organism (principal); R04.2 Hemoptysis; G47.33 Obstructive sleep apnea (adult) (pediatric)
CPT/HCPCS: 36415; 71045; 71275; 80048; 80053; 80061; 80076; 81003; 81015; 82947; 83605; 83735; 83880; 84100; 84145; 84443; 84484; 85025; 85610; 87040; 87070; 87205; 87804; 93005; 94640; 94660; 94760; 96365; 96367; 97116; 97161; 99285; J0456; J0696; J1650; J7030; J7799; Q9967

== ENCOUNTER 2024-12-07 21:14 | Emergency (ER) | payer BC ==
--- NOTE | 2024-12-07 22:47 | RAD REPORT ---
EXAMINATION: TWO VIEW CHEST XR CLINICAL INDICATION: Female, 68 years old. [facility] MAIN CHEST PAIN Bed Name: IW1 TECHNIQUE: 2 view radiographs of the chest were performed. COMPARISON: 10/23/2020 FINDINGS: The lungs are well inflated and clear. No pneumothorax or sizable effusion. The heart is normal in si ze. Mediastinal contours are unremarkable. IMPRESSION: No acute or significant abnormalities.
--- NOTE | 2024-12-07 22:48 | RAD REPORT ---
EXAM: XR Knee Right 3 View HISTORY: SWELLING Bed Name: IW1 COMPARISON: None TECHNIQUE: 3 views of the left knee were obtained. FINDINGS: No knee effusion is seen. There is no evidence of acute fracture or dislocation. Mild dege nerative changes especially along the patellofemoral articulation. No soft tissue swelling or other soft tissue abnormality is present. IMPRESSION: No evidence of acute osseous abnormality. Mild osteoarthritic changes.
--- NOTE | 2024-12-07 22:49 | RAD REPORT ---
EXAM: XR Knee Left 3 View HISTORY: Swelling COMPARISON: None TECHNIQUE: 3 views of the left knee were obtained. FINDINGS: Moderate knee effusion is seen. There is no evidence of acute fracture or dislocation. Mil d tricompartmental osteoarthritic changes. No soft tissue swelling or other soft tissue abnormality is present. IMPRESSION: No evidence of acute osseous abnormality. Mild tricompartmental osteoarthritic changes. Moderate joint effusion.
[2024-12-07 23:04] LABS: Absolute Lymphocytes (CBC) 1.4 K/uL (0.7-4.9); Absolute Monocytes 0.5 K/uL (0.1-1.3); Absolute Neutrophil 2.1 K/uL (1.8-8.0); Basophils % 0.4 % (0-1.3); Eosinophils % 1.2 % (0-4.4); Hematocrit 37.5 % (36.0-45.0); Hemoglobin 12.9 g/dL (12.0-15.0); MCHC 34.3 g/dL (32.0-36.0); MCV 90.4 fL (80-100); MPV 9.4 fL (7.6-11.3); Monocytes % 12.7 % (3.3-12.3); Neutrophils % 51.7 % (41.7-73.7); Nucleated Red Blood Cells % 0.1 % (0-0); Platelets 168 thou/uL (152-406); RBC Red Blood Cell Count 4.15 M/uL (3.86-4.86)
[2024-12-07 23:14] LABS: Albumin 4.1 g/dL (3.4-5.0); Anion Gap 8.6 mEq/L (5.0-15.0); Bilirubin Total 0.8 mg/dL (0.2-1.0); Globulin 4.1 g/dL (2.3-3.5); Potassium 3.6 mEq/L (3.5-5.1); Protein, Total 8.2 g/dL (6.4-8.2); Troponin High Sensitivity 5.9 pg/mL (<58.9)
--- NOTE | 2024-12-08 01:12 | ER ---
Nurse's Notes [facility] Name: Solange So Age: 68 yrs Sex: Female : 1955 Arrival Date: 12/07/2024 Time: 21:14 Bed 6 Private MD: Diagnosis: Effusion, left knee Presentation: 12/07 21:21 Chief complaint: Patient states: LUIS MANUEL KNEE BRUISING AND SWELLING X1 WEEK AND OCCASIONAL dd2 PAIN UNDER RT BREAST WITH MOVEMENT AND TWISTING X 1 YEAR. Coronavirus screen: At this time, the client does not indicate any symptoms associated with coronavirus-19. Ebola Screen: No symptoms or risks identified at this time. Initial Sepsis Screen: Does the patient meet any 2 criteria? No. Patient's initial sepsis screen is negative. Does the patient have a suspected source of infection? No. Patient's initial sepsis screen is negative. Risk Assessment: Do you want to hurt yourself or someone else? Patient reports no desire to harm self or others. Onset of symptoms is unknown. 21:21 Method Of Arrival: Ambulatory dd2 21:21 Acuity: CONSTANCE 3 dd2 Triage Assessment: 21:27 General: Appears in no apparent distress. uncomfortable, Behavior is calm, cooperative, dd2 appropriate for age. Pain: Complains of pain in right knee and left knee Pain does not radiate. Pain currently is 0 out of 10 on a pain scale. at worst was 10 out of 10 on a pain scale. EENT: No deficits noted. No signs and/or symptoms were reported regarding the EENT system. Neuro: No deficits noted. Level of Consciousness is awake, alert, obeys commands, Oriented to person, place, time, situation, Appropriate for age. Cardiovascular: Denies chest pain. Respiratory: No deficits noted. Airway is patent Respiratory effort is even, unlabored, Respiratory pattern is regular, symmetrical. GI: No deficits noted. No signs and/or symptoms were reported involving the gastrointestinal system. : No deficits noted. No signs and/or symptoms were reported regarding the genitourinary system. Derm: No deficits noted. No signs and/or symptoms reported regarding the dermatologic system. Musculoskeletal: Circulation, motion, and sensation intact. Range of motion: intact in all extremities, Swelling present in right knee and left knee Reports pain in diaphragm. Historical: - Allergies: 21:27 No Known Allergies; dd2 - PMHx: 21:27 Sleep apnea; dd2 - PSHx: 21:27 section; dd2 - Immunization history:: Adult Immunizations up to date. - Infectious Disease History:: Denies. - Social history:: Smoking status: Patient denies any tobacco usage or history of. Screenin:58 [facility] ED Fall Risk Assessment (Adult) History of falling in the last 3 months, bm8 including since admission No falls in past 3 months (0 pts) Confusion or Disorientation No (0 pts) Intoxicated or Sedated No (0 pts) Impaired Gait Yes (1 pt) Mobility Assist Device Used No (0 pt) Altered Elimination No (0 pt) Score/Fall Risk Level 0 - 2 = Low Risk Oriented to surroundings, Maintained a safe environment, Educated pt \T\ family on fall prevention, incl call for assistance when getting out of bed, Assessed \T\ reinforced patient's understanding of fall precautions, Hourly rounding (assess needs \T\ fall precautionary measures) done, Used ambulatory aids as needed (educated on \T\ assisted with), Used gait belt as appropriate. Abuse screen: Denies threats or abuse. Nutritional screening: No deficits noted. Tuberculosis screening: No symptoms or risk factors identified. Assessment: 22:58 Reassessment: Patient appears in no apparent distress at this time. Patient and/or bm8 family updated on plan of care and expected duration. Pain level reassessed. Patient is alert, oriented x 3, equal unlabored respirations, skin warm/dry/pink. General: Appears in no apparent distress. comfortable, Behavior is calm, cooperative, appropriate for age. Pain: Complains of pain in right leg and left leg and right knee and left knee Pain currently is 2 out of 10 on a pain scale. Neuro: No deficits noted. Level of Consciousness is awake, alert, obeys commands, Oriented to person, place, time, situation, Appropriate for age. Cardiovascular: Denies chest pain, Capillary refill < 3 seconds in bilateral fingers toes Patient's skin is warm and dry. Respiratory: Airway is patent Respiratory effort is even, unlabored, Respiratory pattern is regular, symmetrical, Breath sounds are clear bilaterally. Musculoskeletal: Circulation, motion, and sensation intact. Capillary refill < 3 seconds, in bilateral fingers. toes. Range of motion: intact in all extremities, Swelling present in left leg and left knee Reports pain in left leg and left knee. 12/08 00:34 Reassessment: Patient appears in no apparent distress at this time. Patient and/or bm8 family updated on plan of care and expected duration. Pain level reassessed. Patient is alert, oriented x 3, equal unlabored respirations, skin warm/dry/pink. Patient states feeling better. Patient states symptoms have improved. 01:29 Reassessment: Patient and/or family updated on plan of care and expected duration. Pain ha1 level reassessed. Patient is alert, oriented x 3, equal unlabored respirations, skin warm/dry/pink. Vital Signs: 12/07 21:32 BP 175 / 101; Pulse 79; Resp 17; Temp 98.4; Pulse Ox 100% on R/A; Weight 104.33 kg; dd2 Height 5 ft. 10 in. ; Pain 0/10; 22:58 BP 164 / 66; Pulse 73; Resp 16; Temp 98.4; Pulse Ox 99% ; Pain 2/10; bm8 12/08 00:34 BP 159 / 83; Pulse 42; Resp 16; Temp 98.4; Pulse Ox 99% ; Pain 2/10; bm8 01:05 BP 160 / 86; Pulse 71; Resp 17 S; Pulse Ox 98% on R/A; ha1 12/07 21:32 Body Mass Index 33.00 (104.33 kg, 177.8 cm) dd2 12/07 21:32 Pain Scale: Adult dd2 22:58 Pain Scale: Adult bm8 12/08 00:34 Pain Scale: Adult bm8 Edna Coma Score: 12/07 22:58 Eye Response: spontaneous(4). Motor Response: obeys commands(6). Verbal Response: bm8 oriented(5). Total: 15. 12/08 00:34 Eye Response: spontaneous(4). Motor Response: obeys commands(6). Verbal Response: bm8 oriented(5). Total: 15. ED Course: 12/07 21:16 Patient arrived in ED. im 21:17 [facility] Whitney [facility]C [facility] 21:17 Guido Skelton DO is Attending Physician. dr5 21:27 Triage completed. dd2 21:27 Arm band placed on right wrist. dd2 21:44 Alfredo Hawley, RN is Primary Nurse. bm8 22:16 Missed attempt(s): 20 gauge in right antecubital area. 22 gauge in right hand. Bleeding bm8 controlled, band aid applied, catheter tip intact. 22:24 Knee Left 3 View XRAY In Process Unspecified. EDMS 22:24 Knee Right 3 View XRAY In Process Unspecified. EDMS 22:24 Chest Pa And Lat (2 Views) XRAY In Process Unspecified. EDMS 22:58 Patient has correct armband on for positive identification. Placed in gown. Bed in low bm8 position. Call light in reach. Side rails up X2. Adult w/ patient. Client placed on continuous cardiac and pulse oximetry monitoring. NIBP monitoring applied. phototypesetting equipment monitor on. Pulse ox on. NIBP on. Door closed. Noise minimized. Warm blanket given. Pillow given. Verbal reassurance given. Head of bed elevated. 22:58 No provider procedures requiring assistance completed. Initial lab(s) drawn, by javier parisi sent to lab. EKG done, by ED staff, reviewed by Hira COLON. Inserted saline lock: 20 gauge in left antecubital area, using aseptic technique. Blood collected. Flushed with 10 mL NS. Patient maintains SpO2 saturation greater than 95% on room air. 12/08 01:29 Provided Education on: FOLLOW [employer] . ha1 : IV discontinued, intact, bleeding controlled, No redness/swelling at site. Pressure ha1 dressing applied. Administered Medications: No medications were administered Medication: 12/07 22:58 VIS not applicable for this client. bm8 Outcome: 12/08 01:12 Discharge ordered by . dr5 : Discharged to home via wheelchair, with family, ha1 : Condition: stable :29 Discharge instructions given to patient, family, Instructed on discharge instructions, follow up and referral plans. Demonstrated understanding of instructions, follow-up care, :30 Patient left the ED. ha1 Signatures: Dispatcher [employer] Daja Jones, RN RN ha1 Cristin Sena Brad, RN RN bm8 KACIE ROY RN RN dd2 Hira Whitney, ISAIAH [id number] Corrections: (The following items were deleted from the chart) 04/25 21:28 21:27 PMHx: Hypertension; dd2 dd2 : 21:27 Pain: Complains of pain in right knee and left knee Pain does not radiate. Pain dd2 currently is 5 out of 10 on a pain scale. dd2 : 21:27 Musculoskeletal: Circulation, motion, and sensation intact. Range of motion: dd2 intact in all extremities, Swelling present in right knee and left knee Reports pain in right knee and left knee dd2 21:32 21:21 BP 175 / 101; Pulse 79bpm; Resp 17bpm; Pulse Ox 100% RA; Temp 98.4F; 104.33 kg; dd2 Height 5 ft. 10 in.; BMI: 33.0; Pain 7/10, Adult; dd2
--- NOTE | 2024-12-08 01:12 | EDPHYS ---
Physician Documentation [facility] Name: Solange So Age: 68 yrs Sex: Female : 1955 Arrival Date: 12/07/2024 Time: 21:14 Bed 6 Private MD: ED Physician Guido Skelton HPI: 12/08 01:16 This 68 yrs old Female presents to ER via Ambulatory with complaints of knee dr5 swelling, Flank Pain. 01:16 Onset: The symptoms/episode began/occurred acutely. Patient is a 68-year-old female dr5 with history of sleep apnea coming in with bilateral lower knee extremity pain and swelling left worse than right. Patient reports that she stands all day and has pain on her knees as well as some pain when she twists on her right chest. Patient denies any medical problems or daily medicines. Historical: - Allergies: 12/07 21:27 No Known Allergies; dd2 - PMHx: 21:27 Sleep apnea; dd2 - PSHx: 21:27 section; dd2 - Immunization history:: Adult Immunizations up to date. - Infectious Disease History:: Denies. - Social history:: Smoking status: Patient denies any tobacco usage or history of. ROS: 12/08 01:16 Constitutional: as per hpi dr5 Exam: 01:16 Constitutional: This is a well developed, well nourished patient who is awake, alert, dr5 and in no acute distress. Head/Face: Normocephalic, atraumatic. ENT: Nares patent. No nasal discharge, no septal abnormalities noted. Tympanic membranes are normal and external auditory canals are clear. Oropharynx with no redness, swelling, or masses, exudates, or evidence of obstruction, uvula midline. Mucous membranes moist. Neck: Trachea midline, no thyromegaly or masses palpated, and no cervical lymphadenopathy. Supple, full range of motion without nuchal rigidity, or vertebral point tenderness. No Meningismus. Chest/axilla: Normal chest wall appearance and motion. Nontender with no deformity. No lesions are appreciated. Cardiovascular: Regular rate and rhythm with a normal S1 and S2. Normal PMI, no JVD. No pulse deficits. Respiratory: Lungs have equal breath sounds bilaterally, clear to auscultation. No rales, rhonchi or wheezes noted. No increased work of breathing, no retractions or nasal flaring. Abdomen/GI: Soft, non-tender, non-distended Back: No spinal tenderness. No costovertebral tenderness. Full range of motion. Skin: Warm, dry with normal turgor. Normal color with no rashes, no lesions, and no evidence of cellulitis. Neuro: Awake and alert, GCS 15, oriented to person, place, time, and situation. Cranial nerves II-XII grossly intact. Motor strength 5/5 in all extremities. Sensory grossly intact. Cerebellar exam normal. Normal gait. :16 Musculoskeletal/extremity: Extremities: grossly normal except: noted in the left knee: pain, swelling, noted in the right knee: tenderness, ROM: no acute changes, Circulation is intact in all extremities. Sensation intact. Vital Signs: 12/07 21:32 BP 175 / 101; Pulse 79; Resp 17; Temp 98.4; Pulse Ox 100% on R/A; Weight 104.33 kg; dd2 Height 5 ft. 10 in. ; Pain 0/10; 22:58 BP 164 / 66; Pulse 73; Resp 16; Temp 98.4; Pulse Ox 99% ; Pain 2/10; bm8 12/08 00:34 BP 159 / 83; Pulse 42; Resp 16; Temp 98.4; Pulse Ox 99% ; Pain 2/10; bm8 01:05 BP 160 / 86; Pulse 71; Resp 17 S; Pulse Ox 98% on R/A; ha1 12/07 21:32 Body Mass Index 33.00 (104.33 kg, 177.8 cm) dd2 12/07 21:32 Pain Scale: Adult dd2 22:58 Pain Scale: Adult bm8 12/08 00:34 Pain Scale: Adult bm8 [place] Coma Score: 12/07 22:58 Eye Response: spontaneous(4). Motor Response: obeys commands(6). Verbal Response: bm8 oriented(5). Total: 15. 12/08 00:34 Eye Response: spontaneous(4). Motor Response: obeys commands(6). Verbal Response: bm8 oriented(5). Total: 15. Procedures: 01:16 Splinting: Splint applied to left knee using Knee Brace. applied by nurse. Examined by dr5 me, post splint application: neurovascular intact, 2+ distal pulses palpable, brisk capillary refill noted, Patient tolerated well. MDM: 12/07 21:22 Medical Screening Exam initiated dr5 12/08 01:16 Differential diagnosis: viral Infection, bacterial infection, URI, pneumonia CHF, dr5 NSTEMI, Electrolyte Abnormality. Data reviewed: vital signs, nurses notes. Historians other than the Patient: Daughter/Son: Daughter. Care significantly affected by the following chronic conditions: Sleep Apnea. Care significantly affected by the following Social Determinants of Health: Poor access to healthcare and/or lack of insurance, Poor access to transportation, Problems related to employment. Counseling: I had a detailed discussion with the patient and/or guardian regarding the historical points, exam findings, and any diagnostic results supporting the discharge/admit diagnosis, the presence of at least one elevated blood pressure reading (>120/80) during this emergency department visit, lab results, radiology results, the need for outpatient follow up, for definitive care, a family practitioner, a orthopedic surgeon, to return to the emergency department if symptoms worsen or persist or if there are any questions or concerns that arise at home. ED course: Recommended patient be placed in a knee brace for left knee pain. LUIS MIGUEL recommended at home. Discussed risk versus benefit of draining left knee and patient and daughter both requested to try conservative treatment first. Results printed with blood work as well as x-rays and handed to patient. Patient will follow-up with primary care doctor this Tuesday. All questions answered. I went through all labs with patient and answered any questions. Patient is agreeable to plan of discharge and will return if needed.. 12/07 21:35 Order name: NT PRO-BNP; Complete Time: 00:58 dd2 12/07 21:36 Order name: CBC with Diff; Complete Time: 23:06 dd2 12/07 21:36 Order name: Troponin HS; Complete Time: 23:18 dd2 12/07 21:36 Order name: CMP; Complete Time: 23:18 dd2 12/07 21:36 Order name: Knee Left 3 View XRAY; Complete Time: 23:00 dd2 12/07 21:36 Order name: Knee Right 3 View XRAY; Complete Time: 23:00 dd2 12/07 21:36 Order name: Chest Pa And Lat (2 Views) XRAY; Complete Time: 23:00 dd2 12/07 21:36 Order name: EKG; Complete Time: 21:37 dd2 12/07 21:36 Order name: Cardiac monitoring; Complete Time: :58 dd12/07 21:36 Order name: EKG - Nurse/Tech; Complete Time: 22:15 12/07 21:36 Order name: IV Saline Lock; Complete Time: :58 12/07 21:36 Order name: Labs collected and sent; Complete Time: :58 dd12/07 21:36 Order name: O2 Per Protocol; Complete Time: :58 12/07 21:36 Order name: O2 Sat Monitoring; Complete Time: :58 12/08 01:11 Order name: Knee Immobilizer: Knee Brace On Left Knee Please; Complete Time: dr5 EC/25 21:50 Rate is 78 beats/min. Rhythm is regular. QRS [place] is Normal. [place] interval is normal at dr5 170 msec. QRS interval is normal at 90 msec. QT interval is normal at 382 msec. Administered Medications: No medications were administered Disposition: 12/08 02:36 I was immediately available on-site in the Emergency Department for consultation in the ms3 care of the patient. Disposition Summary: 12/08/24 01:12 Discharge Ordered Notes: Location: Home dr5 Condition: Stable dr5 Diagnosis - Effusion, left knee dr5 Followup: dr5 - With: Emergency Department - When: As needed - Reason: Worsening of condition Followup: dr5 - With: Private Physician - When: 1 - 2 days - Reason: Recheck today's complaints, Continuance of care, Re-evaluation by your physician Discharge Instructions: - Discharge Summary Sheet dr5 - How to Use a Knee Brace dr5 - Knee Effusion dr5 - RICE Therapy for Routine Care of Injuries dr5 Forms: - Work release form dr5 - Medication Reconciliation Form dr5 - Patient Portal Instructions dr5 - Leadership Thank You Letter dr5 Signatures: Dispatcher [employer] EDGuido Junior DO DO ms3 KACIE ROY RN RN dd2 Hira Whitney, MARIA LUZ-Lolly SETUP TECHNICIAN-Cdr5 Corrections: (The following items were deleted from the chart) 12/0728 21:27 PMHx: Hypertension; dd2 dd2 21:37 21:37 Knee Right 3 View+RAD.RAD.BRZ ordered. EDVT EDMS 2137 21:37 Chest Pa And Lat (2 Views)+RAD.RAD.BRZ ordered. EDMS EDMS
[2024-12-08 02:44] VITALS: TEMP 98.4
[2024-12-08 02:49] VITALS: BP 160/86; O2SAT 98
--- NOTE | 2024-12-10 12:14 | EKG ---
Test Date: 2024-12-07 Test Time: 21:50:27 Semi Truck Driver: ISADORA MEASUREMENT RESULTS: Intervals: Rate: 78 SC: 170 QRSD: 90 QT: 382 QTc: 435 [place]: P: 79 SC: 170 QRS: 55 T: 50 INTERPRETIVE STATEMENTS: Normal sinus rhythm Normal ECG Compared to ECG 08/23/2019 16:04:02 ST (T wave) deviation no longer present Electronically Signed On 12-10-24 12:09:07 CDT by Pierre Thomas
== END 2024-12-08 01:30 | disposition home or self-care (01) ==
LOC: ER 21:14
DX: M25.462 Effusion, left knee (principal); M25.561 Pain in right knee
CPT/HCPCS: 36415; 71046; 80053; 83880; 84484; 85025; 93005; 99284